=== PATIENT | male | born 1985 | race Caucasian/White ===

== ENCOUNTER 2022-01-16 13:00 | Emergency (ER) | payer BC, SELFPAY ==
[2022-01-16 13:01] VITALS: BP 130/74; PULSE 78; RESP 16; TEMP 36.6; O2SAT 98; BMI 38.0
--- NOTE | 2022-01-16 13:31 | HMH.EDEYEP ---
ED Disposition Clinical Impression: Left cornea abrasion Qualifiers: Encounter type: initial encounter Qualified Code(s): S05.02XA - Injury of conjunctiva and corneal abrasion without foreign body, left eye, initial encounter Disposition: Home, Self-Care Condition on Discharge: Good Instructions: DI for Corneal Abrasion Additional Instructions: follow up Optometry next week erythromycin opthalmic ointment 1/2 inch strip to eye every 8 hors for 7 days Prescriptions: Erythromycin Base [Erythromycin 1gm opth ointment] 1 gm OP Q8 7 Days #1 gm Transmission Status: Pending to [id number] Referrals: Provider,Referral, [Primary Care Provider] - - Critical Care Critical Care Time: No Attestation: On , the high probability of a clinically significant, sudden or life threatening deterioration of the following system(s) required my full and direct attention, intervention and personal management. The time I documented below is in addition to time spent performing reported procedures but includes the following listed in this critical care notation. Medical Decision Making - Medical Records Medical records reviewed: Yes: I reviewed the patient's medical records. - [place] Inquiry Pt receiving controlled substance: No Medical Decision Narrative: left eye tetracaine instilled, irrig well, no fb seen, no hyphema, fluroscene with iuptake/abrasion seen, otherwise nml Eye Problem HPI - General Stated complaint: irriated eye Time Seen by Provider: 01/16/22 13:31 - History of Present Illness HPI Narrative: left eye injured at home by pillow yesterday accidental, today with redness and fb sensation Onset (ago): day(s) Onset description: sudden Duration: constant Location: left eye Eye Symptoms: redness, pain, foreign body sensation Mechanism: direct trauma Severity: mild Associated symptoms: none Treatments Prior to Arrival: irrigated eye - Related Data Previous Rx's Medication Instructions Recorded cetirizine 10 mg tablet 10 mg PO DAILY #30 tab 10/20/19 Erythromycin Base [Erythromycin 1 gm OP Q8 7 Days #1 gm 01/16/22 1gm opth ointment] Allergies Allergy/AdvReac Type Severity Reaction Status Date / Time No Known Allergies Allergy Verified 11/07/19 10:59 [facility] History - Hepatitis A Screen Attestation statement:: This patient has been screened for Hepatitis A risk factors. Laterality Cases: Bilateral: Myringotomy (Ear Tubes) Comment: descended testicular repair as . - Social History Smoking Status: Current some day smoker Tobacco Type: cigarettes Alcohol Intake: current Alcohol Intake Frequency:: a few times a week Substance Use Type: denies use Occupational Status: employed ROS Obtained: Yes All systems reviewed & no additional complaints Physical Exam - General General appearance: alert, in no apparent distress - Head Head exam: atraumatic, normocephalic - Eye Eye exam: Present: PERRL, EOMI, conjunctival redness, other (left eye fluroscene uptake , no fb seen). Absent: discharge, periorbital swelling - Respiratory Respiratory exam: Present: normal lung sounds bilaterally. Absent: respiratory distress, wheezes - Cardiovascular Cardiovascular exam: Present: regular rate, normal rhythm. Absent: tachycardia - Neurological Exam Neurological exam: Present: alert, oriented X3, CN II-XII intact
[2022-01-16 13:45] VITALS: BP 123/74; PULSE 74; RESP 16; TEMP 36.6; O2SAT 98
== END 2022-01-16 13:51 | disposition home or self-care (01) ==
LOC: ER 13:50
PROVIDERS: Emergency Provider Emergency Medicine
DX: S05.02XA Injury of conjunctiva and corneal abrasion without foreign body, left eye, initial encounter (principal); W22.8XXA Striking against or struck by other objects, initial encounter; Y92.019 Unspecified place in single-family (private) house as the place of occurrence of the external cause; F17.210 Nicotine dependence, cigarettes, uncomplicated
CPT/HCPCS: 99283